=== PATIENT | male | born 1985 | race Caucasian/White ===

== ENCOUNTER 2018-07-05 20:13 | Observation (INO) ==
[2018-07-05] MEDS ORDERED: Ibuprofen 800 MG TABLET PO ONE (20:40)
[2018-07-05] MEDS ORDERED: Acetaminophen 325 MG TABLET PO ONE (20:40)
[2018-07-05] MEDS ORDERED: 0.9 % Sodium Chloride 1,000 ML IVC ONE ×3 (21:15→22:57)
[2018-07-05] MEDS ORDERED: Levofloxacin 750 MG/150 ML 750 MG/150 ML BAG IVPB ONE (21:22)
[2018-07-05 21:38] LABS: Basophils # 0.1 K/mcL (0.0-0.2); Basophils % 0.4 %; Eosinophils % 0.1 %; Hematocrit 41.3 % (37.5-50.1); Hemoglobin 14.4 g/dL (12.9-16.9); Immature Granulocytes % 5.4 % (0-4); Lymphocytes # 2.1 K/mcL (0.6-4.6); Lymphocytes % 11.7 %; Mean Corpuscular HGB Conc 34.9 g/dL (31.6-35.5); Mean Corpuscular Hemoglobin 32.1 pg (28.0-33.3); Mean Corpuscular Volume 92.2 fL (83.0-100.0); Mean Platelet Volume 9.2 fL (9.4-12.4); Monocytes # 1.9 K/mcL (0.0-1.3); Monocytes % 10.6 %; Neutrophils # 12.9 K/mcL (1.6-8.9); Platelet Count 329 K/mcL (140-400); Red Blood Count 4.48 M/mcL (4.19-5.50); Red Cell Distribution Width 11.3 % (11.5-14.5); Segmented Neutrophils % 71.8 %
[2018-07-05 21:50] LABS: Alanine Aminotransferase 50 Units/L (7-52); Alkaline Phosphatase 69 Units/L (34-104); Aspartate Amino Transferase 24 Units/L (13-39); BUN/Creatinine Ratio 13 (6-26); Bilirubin,Total 0.9 mg/dL (0.3-1.0); Blood Urea Nitrogen 13 mg/dL (6-20); Calcium 9.3 mg/dL (8.6-10.3); Carbon Dioxide 25 mEq/L (23-29); Chloride 96 mEq/L (98-107); Glucose 158 mg/dL (70-105); Osmolality,Calculated 271 (280-300); Potassium 3.7 mEq/L (3.5-5.1); Sodium 129 mEq/L (136-145); eGFR For Non-African Americans > 60 (> 60)
[2018-07-05 22:06] LABS: INR 1.7; Prothrombin Time 19.1 Seconds (9.4-12.1)
[2018-07-05 22:10] LABS: Activated Partial Thrombo Time 30.5 Seconds (26.0-36.0)
--- NOTE | 2018-07-05 22:48 | Emergency Department Note ---
Disposition Clinical Impression: Pneumonia Disposition: Admitted As Inpatient Condition: Fair Time of Disposition: 21:50 General Adult HPI - General Chief complaint: ED Upper Respiratory Infection Stated complaint: cough Time Seen by Provider: 07/05/18 20:30 Source: patient Mode of arrival: ambulatory Limitations: no limitations Nursing Notes Reviewed: Yes Vital Signs Reviewed: Yes - History of Present Illness HPI Narrative: About 2 weeks ago Mr. Quevedo had the sudden onset of muscle aches headache and a hacking cough. He tells me his fever was up to 104 at that point. He felt this way for about a week and thought he was getting better in terms of the headache muscle aches that about 5 days ago noticed that he had some sharp inspiratory pain on the right side of his chest radiating through his back and his cough got worse and more productive than the fevers returned. He is also been short of breath when he walks. He also started having diarrhea over the last couple of days as well too numerous to count today. No blood in the stool. He has been feeling somewhat dizzy and lightheaded and has urinated much less frequently the last couple of days than normal. Even though he has not been nauseated his by mouth intake is way down secondary to no appetite. He did have one episode of emesis today that was associated with a forceful cough and regurgitation. No abdominal pain. Pain Scale: 4 - Related Data Home Medications Medication Instructions Recorded Confirmed No Known Home Drugs 07/05/18 07/05/18 Allergies Allergy/AdvReac Type Severity Reaction Status Date / Time No Known Allergies Allergy Verified 07/05/18 20:23 Constitutional: Reports: fever ENT ED: Reports: congestion Cardiovascular: Reports: chest pain, dyspnea on exertion Respiratory: Reports: cough, sputum production Gastrointestinal: Reports: as per HPI, vomiting, diarrhea. Denies: abdominal pain, nausea Genitourinary: Reports: as per HPI Musculoskeletal: Reports: myalgia Integumentary: Denies: rash Neurological: Reports: headache Endocrine: Reports: fatigue Hematological/Lymphatic: Denies: easy bruising Past Medical History - Past Medical History Medical history: Reports: no medical history Psychiatric history: Reports: no psych history - Social History Smoking Status: Never smoker Smokeless Tobacco Status: No Alcohol use: Reports: none Drug use: Reports: none Physical Exam - General General appearance: alert, in no apparent distress - Head Head exam: atraumatic, normocephalic - Eye Eye exam: Present: normal appearance - ENT ENT exam: normal oropharynx, mucous membranes dry - Neck Neck exam: Present: normal inspection. Absent: lymphadenopathy - Chest Chest inspection: Present: normal inspection, symmetric chest wall rise - Respiratory Respiratory exam: Present: other (Inspiratory crackles right middle lobe). Absent: respiratory distress (No angi respiratory distress but his voice is somewhat "breathy"), wheezes, stridor - Cardiovascular Cardiovascular exam: Present: tachycardia. Absent: systolic murmur, diastolic murmur - Abdominal Exam Abdominal exam: Present: soft, Non-Tender - Extremities Exam Extremities exam: Present: normal inspection - Neurological Exam Neurological exam: Present: alert - Psychiatric Psychiatric exam: Present: normal affect, normal mood - Skin Skin exam: Present: warm, dry. Absent: rash Course Vital Signs Temperature 101.6 F H 07/05/18 20:19 Pulse Rate 123 07/05/18 20:19 Respiratory Rate 20 07/05/18 20:19 Blood Pressure 144/86 07/05/18 20:19 O2 Sat by Pulse Oximetry 96 07/05/18 20:19 Temperature 99.4 F 07/05/18 22:08 Pulse Rate 90 07/05/18 22:53 Respiratory Rate 18 07/05/18 23:13 Blood Pressure 118/77 07/05/18 23:13 O2 Sat by Pulse Oximetry 96 07/05/18 22:53 Oxygen Delivery Oxygen Delivery Room Air Medical Decision Making - [facility] Narrative Medical decision making narrative: Pneumonia. This sounds very much as though this started with influenza with some clinical resolution before the onset of a complicating pneumonia which could put him at risk for community-acquired MRSA as an etiology for his current presentation. It would maybe most prudent to admit him even though he is not vomiting and not frankly O2 dependent. However on recheck pulseox 95% room air but after a short ambulation it did decrease to 92%. I spoke with the covering hospitalist and presented the case. He accepted admission. We will begin him on linezolid which on review he has a slightly better profile than vancomycin and also Levaquin which will cover community- acquired pneumonia including the atypicals. These are both started here in the emergency department along with 1 L of fluid. He was given by mouth ibuprofen and Tylenol. He defervesced heart rate decreased into the 90s and he is not hypertensive with 2 readings of systolic blood pressures in the 120s. He appears to be much more comfortable. I did explain my reasoning for admission. He voiced agreement and understanding. He is in improved condition awaiting transfer to the floor. - Lab Data Lab results reviewed: Yes I reviewed the patient's lab results. Result diagrams: 07/05/18 21:30 07/05/18 21:30 Lab Results 07/05/18 07/05/18 07/05/18 Range/Units 21:30 21:30 21:30 WBC 17.9 H (4.3-11.1) K/mcL RBC 4.48 (4.19-5.50) M/mcL Hgb 14.4 (12.9-16.9) g/dL Hct 41.3 (37.5-50.1) % MCV 92.2 (83.0-100.0) fL MCH 32.1 (28.0-33.3) pg MCHC 34.9 (31.6-35.5) g/dL RDW 11.3 L (11.5-14.5) % Plt Count 329 (140-400) K/mcL MPV 9.2 L (9.4-12.4) fL Immature Gran % 5.4 H (0-4) % Seg Neutrophils % 71.8 % Lymphocytes % 11.7 % Monocytes % 10.6 % Eosinophils % 0.1 % Basophils % 0.4 % Neutrophils # 12.9 H (1.6-8.9) K/mcL Lymphocytes # 2.1 (0.6-4.6) K/mcL Monocytes # 1.9 H (0.0-1.3) K/mcL Eosinophils # 0.0 (0.0-0.6) K/mcL Basophils # 0.1 (0.0-0.2) K/mcL PT (9.4-12.1) Seconds INR APTT (26.0-36.0) Seconds Sodium 129 L (136-145) mEq/L Potassium 3.7 (3.5-5.1) mEq/L Chloride 96 L (98-107) mEq/L Carbon Dioxide 25 (23-29) mEq/L BUN 13 (6-20) mg/dL Creatinine 1.01 (0.70-1.30) mg/dL Est GFR ( Amer) > 60 (> 60) Est GFR (Non-Af Amer) > 60 (> 60) BUN/Creatinine Ratio 13 (6-26) Glucose 158 H (70-105) mg/dL Calculated Osmolality 271 L (280-300) Calcium 9.3 (8.6-10.3) mg/dL Magnesium 2.0 (1.6-2.6) mg/dL Total Bilirubin 0.9 (0.3-1.0) mg/dL AST 24 (13-39) Units/L ALT 50 (7-52) Units/L Alkaline Phosphatase 69 (34-104) Units/L Serum Total Protein 8.0 (6.4-8.9) g/dL Albumin 4.0 (3.5-5.7) g/dL Globulin 4.0 H (2.4-3.5) g/dL Albumin/Globulin Ratio 1.0 L (1.1-2.2) 07/05/18 Range/Units 21:30 WBC (4.3-11.1) K/mcL RBC (4.19-5.50) M/mcL Hgb (12.9-16.9) g/dL Hct (37.5-50.1) % MCV (83.0-100.0) fL MCH (28.0-33.3) pg MCHC (31.6-35.5) g/dL RDW (11.5-14.5) % Plt Count (140-400) K/mcL MPV (9.4-12.4) fL Immature Gran % (0-4) % Seg Neutrophils % % Lymphocytes % % Monocytes % % Eosinophils % % Basophils % % Neutrophils # (1.6-8.9) K/mcL Lymphocytes # (0.6-4.6) K/mcL Monocytes # (0.0-1.3) K/mcL Eosinophils # (0.0-0.6) K/mcL Basophils # (0.0-0.2) K/mcL PT 19.1 H (9.4-12.1) Seconds INR 1.7 APTT 30.5 (26.0-36.0) Seconds Sodium (136-145) mEq/L Potassium (3.5-5.1) mEq/L Chloride (98-107) mEq/L Carbon Dioxide (23-29) mEq/L BUN (6-20) mg/dL Creatinine (0.70-1.30) mg/dL Est GFR ( Amer) (> 60) Est GFR (Non-Af Amer) (> 60) BUN/Creatinine Ratio (6-26) Glucose (70-105) mg/dL Calculated Osmolality (280-300) Calcium (8.6-10.3) mg/dL Magnesium (1.6-2.6) mg/dL Total Bilirubin (0.3-1.0) mg/dL AST (13-39) Units/L ALT (7-52) Units/L Alkaline Phosphatase (34-104) Units/L Serum Total Protein (6.4-8.9) g/dL Albumin (3.5-5.7) g/dL Globulin (2.4-3.5) g/dL Albumin/Globulin Ratio (1.1-2.2) - Radiology Data Radiology results reviewed: Yes I reviewed the patient's radiology results.
[2018-07-05] MEDS ORDERED: Naloxone 0.4 MG/ML INJ IVP PRN (22:57)
[2018-07-05] MEDS ORDERED: Ketorolac 30 MG/ML VIAL IVP PRN (22:57)
[2018-07-06] MEDS: Ondansetron 4 MG/2 ML VIAL IVP SCH ×4 (00:21→14:36)
[2018-07-06] MEDS: 0.9 % Sodium Chloride 1,000 ML IVC SCH ×2 (01:21→08:32)
[2018-07-06 05:56] LABS: Basophils # 0.1 K/mcL (0.0-0.2); Basophils % 0.4 %; Eosinophils % 0.2 %; Hematocrit 35.8 % (37.5-50.1); Immature Granulocytes % 5.1 % (0-4); Lymphocytes # 1.8 K/mcL (0.6-4.6); Lymphocytes % 10.8 %; Mean Corpuscular HGB Conc 34.1 g/dL (31.6-35.5); Mean Corpuscular Hemoglobin 32.3 pg (28.0-33.3); Mean Corpuscular Volume 94.7 fL (83.0-100.0); Mean Platelet Volume 9.1 fL (9.4-12.4); Monocytes # 1.7 K/mcL (0.0-1.3); Monocytes % 10.4 %; Platelet Count 264 K/mcL (140-400); Red Blood Count 3.78 M/mcL (4.19-5.50); Red Cell Distribution Width 11.5 % (11.5-14.5); Segmented Neutrophils % 73.1 %
[2018-07-06 06:06] LABS: Hemoglobin 12.2 g/dL (12.9-16.9); Neutrophils # 11.8 K/mcL (1.6-8.9)
[2018-07-06] MEDS: *HR* Enoxaparin 40 MG/0.4 ML SYRINGE SQ SCH (06:08)
[2018-07-06 06:10] LABS: BUN/Creatinine Ratio 13 (6-26); Blood Urea Nitrogen 12 mg/dL (6-20); Calcium 8.3 mg/dL (8.6-10.3); Carbon Dioxide 27 mEq/L (23-29); Chloride 106 mEq/L (98-107); Glucose 131 mg/dL (70-105); Osmolality,Calculated 288 (280-300); Potassium 4.1 mEq/L (3.5-5.1); Sodium 138 mEq/L (136-145); eGFR For Non-African Americans > 60 (> 60)
[2018-07-06 13:26] LABS: INR 1.7; Prothrombin Time 19.6 Seconds (9.4-12.1)
[2018-07-06] MEDS ORDERED: Ondansetron 4 MG/2 ML VIAL IVP PRN (14:13)
--- NOTE | 2018-07-06 15:04 | Internal Med History&Physical ---
Date of Encounter: 07/06/18 Time of Encounter: 15:01 Assessment and Plan (1) Pneumonia Current visit: Yes Status: Acute We will begin him on Levaquin empirically on these limited as well. I spoke with pharmacy and they suggest swabs of nose for MRSA. If these are negative, Knisley may be discontinued. I told the patient that we would like to see him get better from this standpoint and then can send him home in the next 2 or 3 days. Qualifiers: Pneumonia type: due to unspecified organism Laterality: right Lung location: middle lobe of lung Qualified Code(s): J18.1 - Lobar pneumonia, unspecified organism (2) Diarrhea Current visit: Yes Status: Acute While this is improving the etiology is uncertain. He has not been on antibiotics associated with this episode, when he had flu, etc. We will replace fluids, follow his course clinically. He has no exam abnormalities to indicate inflammatory bowel disease, etc. He also has no melena or hematochezia. Qualifiers: Diarrhea type: unspecified type Qualified Code(s): R19.7 - Diarrhea, unspecified Internal Medicine - H&P: HPI Chief complaint: Cough and diarrhea Admitted From: Home Plans for Post Hospital Care: Home History of present illness: Mr. Peña is a 32 year old male with history of influenza about 2 weeks ago. This was progressing and seemed to be getting his energy back. However, a day or so prior to admission, he developed worsening cough, pain inside his chest, especially with cough, more sputum production, and especially weakness. He presented to the emergency room with these symptoms found to have a right middle lobe pneumonia. The patient also gives a history of 2-3 days of diarrhea which has been worse. He states that he was having 15-20 loose watery bowel movements per day. Without hematochezia or melena. No one in his family including and children have been sick. Because of concern about MRSA pneumonia overlying influenza, he was begun on Levaquin and linezolid. He has no known drug allergies and takes no medications at home. The patient denies any surgery history. Past medical history is remarkable only for a right eye injury when he was child. He states that he sees about 20% out of this eye. Family history is unremarkable. Past Med Surg Social Fam HX - Past Medical History Medical history: no medical history Psychiatric history: no psych history - Past Surgical History Surgical History: no surgical history - Social History Smoking Status: Never smoker Smokeless Tobacco Status: No Alcohol use: none Drug use: none - Family History Mother Living Status: Still Living Hx Family Cardiac Disorders: No Hx Family Respiratory Disorders: No Hx Family Cancer: No Father Living Status: Still Living Hx Family Cardiac Disorders: No Hx Family Respiratory Disorders: No Hx Family Cancer: No Internal Medicine - H&P: Meds No Known Home Drugs 07/05/18 [History] Allergy/AdvReac Type Severity Reaction Status Date / Time No Known Allergies Allergy Verified 07/05/18 20:23 All Systems PM: Patient has no complaint of chest discomfort, dyspnea, orthopnea, breathing problems, palpitations, nausea or vomiting, constipation or diarrhea, other changes in bowel habits, heartburn, difficulty with urination, kidney problems or kidney stones, fevers chills or sweats, rash or itching, seizures, headache or lightheadedness, heat or cold intolerance, blood problems or anemia, or other new complaints, except as mentioned above. Review of systems is otherwise negative. - Constitutional Vitals: Temp Pulse Resp BP Pulse Ox 98.3 F 83 15 125/75 98 07/06/18 13:28 07/06/18 13:28 07/06/18 13:28 07/06/18 13:28 07/06/18 13:28 Exam: Examination: (Except as mentioned above): General: In no apparent distress, alert and oriented 3. Head: Atraumatic and normocephalic. Eyes: Extraocular muscles are intact, pupils equal round and reactive to light and accommodation. Sclerae anicteric. Ears: External ears are normal to inspection and hearing is grossly normal. Nose: Patent without lesion noted. Mouth: No intraoral lesions seen. Dentition is unremarkable. Neck: Supple with trachea midline. There is no thyromegaly or adenopathy and carotids are 2+ without bruit heard. Respiratory: No use of accessory muscles. He has mild right middle and right upper lung area rhonchi which are moist. He has no rales. There is mild vocal fremitus. Remainder of lung exam is unremarkable. Normal airflow. Cardiovascular: Regular rate and rhythm without murmur appreciated. Abdomen: Bowel sounds are normal. No hepatosplenomegaly masses or tenderness. Obese and therefore difficult to palpate deeply. Extremities: No cyanosis clubbing or edema. Neurological: A and O 3. Cranial nerves II through XII are intact. No focal deficits and no abnormal movements or postures. Skin: Warm and non-diaphoretic with no lesions noted. Breasts, pelvic and rectal: Not examined. Internal Med - H&P Results - Labs CBC & Chem 7: 07/06/18 05:40 07/06/18 05:40 Labs: Short CBC 07/05/18 07/06/18 Range/Units 21:30 05:40 WBC 17.9 H 16.2 H (4.3-11.1) K/mcL Hgb 14.4 12.2 L D (12.9-16.9) g/dL Hct 41.3 35.8 L (37.5-50.1) % Plt Count 329 264 (140-400) K/mcL Neutrophils # 12.9 H 11.8 H (1.6-8.9) K/mcL BMP 07/05/18 07/06/18 21:30 05:40 Sodium 129 L 138 D Potassium 3.7 4.1 Chloride 96 L 106 Carbon Dioxide 25 27 BUN 13 12 Creatinine 1.01 0.94 Glucose 158 H 131 H Calcium 9.3 8.3 L Liver Function 07/05/18 Range/Units 21:30 Total Bilirubin 0.9 (0.3-1.0) mg/dL AST 24 (13-39) Units/L ALT 50 (7-52) Units/L Alkaline Phosphatase 69 (34-104) Units/L Albumin 4.0 (3.5-5.7) g/dL - Impressions ITS Impressions Chest X-Ray 07/05/18 20:40 IMPRESSION: Right middle lobe pneumonia. D/ / Josse Rider MD / Josse Rider MD Interpreting Provider: Josse Rider MD
[2018-07-06] MEDS ORDERED: Levofloxacin 750 MG/150 ML 750 MG/150 ML BAG IVPB SCH (21:00)
[2018-07-06] MEDS ORDERED: Ketorolac 30 MG/ML VIAL IVP PRN (21:22)
[2018-07-07] MEDS: *HR* Enoxaparin 40 MG/0.4 ML SYRINGE SQ SCH (06:00)
[2018-07-07 06:03] LABS: Basophils # 0.1 K/mcL (0.0-0.2); Basophils % 0.8 %; Eosinophils # 0.1 K/mcL (0.0-0.6); Eosinophils % 1.3 %; Hematocrit 34.9 % (37.5-50.1); Immature Granulocytes % 6.1 % (0-4); Lymphocytes # 2.3 K/mcL (0.6-4.6); Lymphocytes % 21.4 %; Mean Corpuscular HGB Conc 34.4 g/dL (31.6-35.5); Mean Corpuscular Hemoglobin 32.4 pg (28.0-33.3); Mean Corpuscular Volume 94.3 fL (83.0-100.0); Neutrophils # 6.5 K/mcL (1.6-8.9); Platelet Count 324 K/mcL (140-400); Red Cell Distribution Width 11.4 % (11.5-14.5); Segmented Neutrophils % 61.4 %
[2018-07-07 06:12] LABS: Platelet Estimate Normal (Normal)
[2018-07-07 06:13] LABS: Reactive Lymphocytes Present (Not Present)
[2018-07-07 06:17] LABS: BUN/Creatinine Ratio 11 (6-26); Blood Urea Nitrogen 10 mg/dL (6-20); Calcium 8.4 mg/dL (8.6-10.3); Carbon Dioxide 27 mEq/L (23-29); Chloride 105 mEq/L (98-107); Potassium 3.7 mEq/L (3.5-5.1); Sodium 138 mEq/L (136-145); eGFR For Non-African Americans > 60 (> 60)
[2018-07-07 07:22] LABS: Glucose 110 mg/dL (70-105); Osmolality,Calculated 286 (280-300)
--- NOTE | 2018-07-07 10:48 | Discharge Summary ---
Addendum entered and electronically signed by Jan Peacock MD 07/07/18 12:45: I have personally performed a face to face evaluation on this patient. I have r eviewed and agree with the care plan. History and Exam by me shows: Patient is still coughing but not as bad as yesterday. He feels that his breathing is doing better and he feels better overall. He wants to go home. We discussed his antibiotics fact that should he get worse, he needs to return to the emergency room. We also informed him that his PCP needs to check on his microbiological data, perform another chest x-ray in a month, and that he might need Zyvox. We recommended he get a coupon for Zyvox from [facility]. Because of persistent prolongation of his INR, we have obtained a clotting profile to make sure he does not have factor V Leiden, etc. Discussed care with other providers and/or nursing. Patient has no complaint of chest discomfort, dyspnea, orthopnea, palpitations, nausea or vomiting, constipation or diarrhea, other changes in bowel habits, difficulty with urination, rash or itching, or other new complaints, except as mentioned above. Review of systems is otherwise negative. Examination: (Except as mentioned above): General: In no apparent distress. Alert and oriented 3. Nondiaphoretic. Head: Atraumatic and normocephalic. Respiratory: No use of accessory muscles. Lungs are clear throughout. Normal airflow. I hear no rales, rhonchi, or fremitus. Cardiovascular: Regular rate and rhythm without murmur appreciated. Abdomen: Bowel sounds are normal. No hepatosplenomegaly mass or tenderness appreciated. Obese and therefore difficult to palpate deeply. Patient is examined upright at bedside and this also limits exam. Extremities: No cyanosis clubbing or edema. Skin: Warm and non-diaphoretic with no new lesions noted. Original Note: Orders not resulted at time of discharge: Pending orders 07/05/18 21:30 Culture,Blood [BC] Stat 07/05/18 23:20 Culture,Sputum with Gram Stain [RM] Stat 07/06/18 20:34 MRSA Surveillance Screen [MOLMIC] Stat 07/07/18 10:44 Factor V Leiden Routine Von Willebrand Panel Routine Date of Encounter: 07/07/18 Time of Encounter: 10:46 - Discharge Diagnosis (1) Pneumonia Priority: Primary Status: Acute Comments: Patient was admitted through the emergency department with diagnosis of right middle lobe pneumonia. Patient had experienced an increase cough approximately 3 days prior to his admission following a flulike illness. Patient was started on Zyvox and Levaquin being admitted to the medical floor. Patient states that he feels his breathing has improved overnight. Patient continues to have a cough today but denies any dyspnea. Lung sounds have cleared from his admission exam. Patient had a temperature 101.6 on admission but has been afebrile since that point. Patient is being discharged home with a prescription for antibiotics. Patient is to follow-up with PCP and to have a follow-up x-ray 1 month from now. Qualifiers: Pneumonia type: due to unspecified organism Laterality: right Lung location: middle lobe of lung Qualified Code(s): J18.1 - Lobar pneumonia, unspecified organism (2) Diarrhea Priority: Secondary Status: Acute Comments: Patient had complaints of multiple diarrhea type stools on admission. He states that his diarrhea has slowed somewhat since his admission. Patient was given instructions on possible food or herbal causes of his diarrhea at home. Patient states understanding. Patient is to follow-up with PCP in one week Qualifiers: Diarrhea type: unspecified type Qualified Code(s): R19.7 - Diarrhea, unspecified (3) Anticoagulant disorder Priority: Secondary Status: Acute Comments: Patient noted to have an elevated PT/INR on admission labs. Labs were repeated which shows a continued slight elevation of INR at 1.7. Additional labs are being drawn prior to his discharge to include a von Willebrand panel and a factor V panel. Patient is to follow-up with his PCP within one week. Patient does state that he takes multiple herbal medications at home. Patient was given instructions to discontinue his herbal medications for a short time to evaluate effects on his diarrhea and his elevated INR. Hospital course: Mr. Peña is a 32 year old male, who presented to emergency department with complaints of increased cough or approximately 3 days prior to his admission. Patient had had flulike symptoms for approximately one to 2 weeks prior to admission. Chest x-ray was obtained during his emergency evaluation which showed a right middle lobe pneumonia. Patient was started on Zyvox and Levaquin, due to possibility of a overlying MRSA infection. Patient stated that his pulmonary status has improved overnight, but continues with a productive cough today. No hypoxia. Patient was febrile on admission but has been afebrile since his initial ED evaluation. Patient's initial WBC count was 17.9 on admission and today was at 10. Patient also has had a complaint of diarrhea for approximately a week prior to his admission, which she states has greatly reduced over the past 48 hours. Patient was given education on possible food or herbal triggers for diarrhea. Patient states that he has been taking multiple herbs at home during his treatment of flu. During patient's initial workup it was discovered his INR was 1.7. Patient denies any medications that could have an effect but does state he has been taking multiple herbs at home. Patient was recommended to stop taking his herbs for the next 1-2 weeks or until he is seen by his PCP to evaluate possible effects of diarrhea and on his INR. Patient states understanding. Additional labs for coagulation have been ordered and are pending. Patient's microbial results from ER cultures remains pending. Patient is recommended to have a repeat chest x-ray within one month for further evaluation. Patient is also recommended to have a repeat INR by his PCP. These diagnostic measures will be recommended for PCP order to allow results to be sent to him. Patient given a prescription for Levaquin at time of discharge Discharge discussed with: patient Time spent discussing smoking cessation with patient: 3 to 10 minutes - Time Spent with Patient Total time spent providing and/or coordinating discharge services: Time spent: Less than 30 minutes - Discharge Medications Prescriptions: No Action No Known Home Drugs 1 each .ROUTE AD each Home Medications: No Known Home Drugs 07/05/18 [History] Allergies/Adverse Reactions: Allergy/AdvReac Type Severity Reaction Status Date / Time No Known Allergies Allergy Verified 07/05/18 20:23 Date of admission: 07/05/18 23:08 Primary care physician: PCP NONE Discharging clinician: Jan Peacock - Constitutional Vitals: Temp Pulse Resp BP Pulse Ox 98.3 F 81 18 144/79 97 07/07/18 07:46 07/07/18 07:46 07/07/18 07:46 07/07/18 07:46 07/07/18 07:46 General appearance: Present: A&O X 3, pleasant - Head Head exam: Present: atraumatic, normocephalic - Eye Eye exam: Present: PERRL, conjuntiva pink, sclera anicteric Pupils: Present: PERRL - Neck Neck exam general surgery: Present: supple, trachea midline. Absent: lymphadenopathy - Respiratory Respiratory exam: Present: CTAB. Absent: accessory muscle use, rales, rhonchi, wheezes Additional comments: CTA throughout. Nonproductive cough. Resp effort relaxed. - Cardiovascular Cardiovascular exam: Present: RRR, +S1, +S2. Absent: diastolic murmur, gallop, rubs, systolic murmur - GI/Abdominal GI/Abdominal exam: Present: normal bowel sounds, soft, no peritoneal signs. Absent: distended, tenderness - Extremities Exam Extremities exam: Present: warm, radial pulses palpable and symmetrical. Absent: calf tenderness, cyanotic, pedal edema - Neurological Exam Neurological exam: Present: CN II-XII intact, oriented X3, no focal deficits. Absent: pronater drift, facial droop, speech deficit - Skin Skin exam: Present: dry, intact - Patient Status Disposition: Home, Self-Care Condition: Fair Functional capacity at discharge: independent ambulation Overall status at discharge: patient is progressing back to baseline - Discharge Instructions Follow Up With: NONE,PCP [Primary Care Provider] - - Diet and Activity Activity: increase activity as tolerated Diet: advance to your usual diet
[2018-07-07 11:49] VITALS: BP 130/80
== END 2018-07-07 14:08 | disposition home or self-care (01) ==
LOC: EMEROOGRE 20:13 → INPGRE 20:13